=== PATIENT | male | born 1950 | race Caucasian/White ===

== ENCOUNTER → 2017-03-20 | Outpatient (CLI) | payer MEDICARE, BC ==
--- NOTE | ~2017-03-20 | US37 ---
[facility] A Service of [facility] RADIOLOGY TEXT RESULTS PATIENT: MARY KAY NEAL LOCATION: SNIV : 50 UNIT #: [id number] AGE: [address]: KANE GIBSON APRN SEX: M ORDER DR: [id number] [address] [address] [id number] O MR#: [id number] Acc #: [id number] NAME: MARY KAY NEAL : 1950 SEX: M STUDY DATE/TIME: 03/20/2017 8:40 UNIT: SNIV ROOM: STUDY DESCRIPTION: US Carotid W/Doppler Bilateral Attending Physician: Kane Gibson Aprn Referring Physician: Kane Gibson Aprn Ordering Physician: Kane Gibson Aprn Primary Care Physician: Kane Gibson Aprn MEDICAL IMAGING REPORT This report is preliminary unless electronic signature is present. EXAM Carotid Doppler INDICATION Confusion and blacking out. Patient reports this happened 1 time. He evidently has a history of hypertension and hypercholesterolemia. TECHNIQUE Bilateral carotid ultrasound examination was performed using wallace-scale, spectral Doppler, and color-flow Doppler imaging. Carotid flow was assessed using standards based on NASCET methodology. FINDINGS Ultrasound examination of the carotid arteries shows plaque involving the common carotid artery on the right as well as the carotid bifurcation and extending into the external carotid artery on the left. Patient is noted to have plaque also involving the bifurcation and extending into both the internal and external carotid artery. Doppler evaluation shows elevated peak systolic flow velocity in the left internal carotid artery measuring up to 138 cm/sec. Velocities within the external carotid arteries also appear elevated measuring 298 cm/sec on the right and 335 cm/sec on the left. There is no evidence of significant carotid stenosis on the right and internal carotid artery peak systolic flow velocity measures up to 79 cm/sec. Both vertebral arteries are patent with normal antegrade flow. IMPRESSION 1. 50% to 69% stenosis at the left internal carotid artery. 2. Mild right carotid disease but no evidence of clinically significant stenosis. 3. Both vertebral arteries are patent with normal antegrade flow, [facility] A Service of [facility] RADIOLOGY TEXT RESULTS PATIENT: MARY KAY NEAL LOCATION: SN : 50 UNIT #: [id number] AGE: [address]: KANE GIBSON APRN SEX: M ORDER DR: further evaluation with CT angiography of the head and neck is suggested. Dictated by... Kathy Atwood M.D. THIS IS AN ELECTRONICALLY VERIFIED REPORT Kathy Atwood M.D. at 03/21/2017 9:46 AM AFF/aa TD: 03/20/2017 15:41 JOB #: [id number] MEDICAL IMAGING REPORT Page 1 of 1
== END | disposition home or self-care (01) ==
LOC: SNIV 08:28
DX: R09.89 Other specified symptoms and signs involving the circulatory and respiratory systems (principal); I65.23 Occlusion and stenosis of bilateral carotid arteries
CPT/HCPCS: 93880